=== PATIENT | male | born 1990 | race Caucasian/White ===

== ENCOUNTER 2022-02-13 21:34 | Emergency (ER) | payer OTHER, SELFPAY ==
[2022-02-13] VITALS (7 sets, daily range): BP systolic 136–155; BP diastolic 77–97; PULSE 62–72; RESP 14–16; TEMP 36.7; O2SAT 94–97; BMI 34.2
[2022-02-13] MEDS: MECLIZINE HCL 12.5 MG TABLET 25 MG PO (22:06)
--- NOTE | 2022-02-13 22:33 | ED_ITS ---
HPI - Dizziness General Chief Complaint: Dizziness Stated Complaint: Lightheaded, Dizzy, Nausea Time Seen by Provider: 02/13/22 22:24 Source: patient Mode of arrival: Ambulatory History of Present Illness HPI Narrative: Patient is a healthy 31-year-old male who presents with dizziness. He said for the last 2 weeks she has had dizziness off and on lasting for about 30-45 seconds at a time mostly at night. Is definitely moving positions at nighttime in bed triggers it. Also standing up sometimes triggers it. Today it was happening more frequently no multiple times an hour. He has not passed out he denies any chest pain or palpitations. He denies any fever or chills. He has no prior history of vertigo. Related Data Previous Rx's Medication Instructions Recorded meclizine 25 mg tablet 25 mg PO TID PRN dizziness #10 tabs 02/13/22 Allergies Allergy/AdvReac Type Severity Reaction Status Date / Time No Known Drug Allergies Allergy Verified 02/13/22 21:46 Review of Systems Review of Systems Narrative: GENERAL: Denies chills, fatigue, malaise, fever, sweats, travel HEENT: Denies sinus pain, ear pain, sore throat, difficulty swallowing, neck pain RESPIRATORY: Denies dyspnea, cough, wheezing, hemoptysis, sputum. CARDIOVASCULAR: Denies chest pain, palpitations, orthopnea, edema GASTROINTESTINAL: Denies nausea, vomiting, abdominal pain, diarrhea, constipation, melena. : Denies dysuria, frequency, incontinence, hematuria, urinary retention, flank pain. MUSCULOSKELETAL: Denies weakness, joint pain, or bony pain SKIN: No rash, no erythema, no pruritus NEUROLOGIC: See HPI PSYCHIATRIC: No concerning psychosocial issues. 12 point review of systems is negative except for those stated above and HPI Patient History Social History Smoking Status: Former smoker Smoking Status: Former smoker alcohol intake frequency: a few times a week Substance Use Type: does not use Exam Initial Vital Signs Initial Vital Signs: Vital Signs Pulse Rate 72 02/13/22 21:41 Respiratory Rate 14 02/13/22 21:41 Blood Pressure 142/97 H 02/13/22 21:41 Pulse Oximetry 96 02/13/22 21:41 GENERAL: Alert pleasant 31-year-old male and in no acute distress. HEENT: Head atraumatic,EOMI, no nystagmus pupils reactive, face symmetric, moist mucous membranes CARDIOVASCULAR: Regular rate and rhythm without murmurs, rubs or gallops. RESPIRATORY: Breath sounds equal bilaterally, no wheezes rales or rhonchi. ABDOMEN: Soft, nontender. Normoactive bowel sounds all 4 quadrants. No guarding or rebound. EXTREMITIES: Normal range of motion, no clubbing or edema. Neurovascularly intact NEUROLOGICAL: Alert and oriented x4.Normal gait and speech. Cranial nerves II through XII grossly intact. Good nlqstt-sd-hxyv, good mgnk-sb-nizb, strength equal bilaterally, no dysarthria or aphasia, sensation in tact to soft touch bilaterally, no visual changes, no facial droop SKIN: Warm, dry, no laceration, no petechiae, no rashes or lesions. Scores NIH Stroke Scale Level of Conciousness: Alert, keenly responsive Ask month/age: Answers both questions correctly. Open/close eyes, close hand: Performs both tasks correctly Best gaze horizontal: Normal Visual saldana: No visual loss Facial palsy: Normal symetrical movement Left arm drift: No drift for full 10 sec Right arm drift: No drift for full 10 sec Left leg drift: No drift for full 5 sec Right leg drift: No drift for full 5 sec Limb ataxia: Absent Sensory on face/arms/legs: Normal, no sensory loss Best language: No aphasia, normal Dysarthria: Normal Extinction or inattention: No abnormality Total NIH Stroke scale score: 0 Course Orders Ordered: ED Orders 02/13/22 22:38 CT head/brain wo con Stat EKG-12 Lead Stat 02/13/22 23:00 CBC Auto Diff [Complete Blood Count AUTO DIFF] Stat CMP [Comprehensive Metabolic Panel] Stat Discontinued Medications Meclizine HCl (Meclizine Hcl 12.5 Mg Tablet) 25 mg PO NOW ONE Stop: 02/13/22 21:57 Last Admin: 02/13/22 22:06 Dose: 25 mg Documented By: AT Vital Signs Vital signs: Vital Signs - 8 hr 02/13/22 21:46 02/13/22 21:41 02/13/22 21:41 Temperature 98.1 F Pulse Rate 70 72 Respiratory Rate 16 14 Blood Pressure 142/97 H 142/97 H Pulse Oximetry 95 96 Oxygen Delivery Method Room Air 02/13/22 22:00 02/13/22 22:00 02/13/22 22:30 Temperature Pulse Rate 70 Respiratory Rate Blood Pressure 155/89 H 136/85 Pulse Oximetry 94 Oxygen Delivery Method 02/13/22 22:30 02/13/22 23:00 02/13/22 23:03 Temperature Pulse Rate 67 62 Respiratory Rate Blood Pressure 151/91 H Pulse Oximetry 95 97 Oxygen Delivery Method 02/13/22 23:03 02/13/22 23:30 02/13/22 23:30 Temperature Pulse Rate 69 67 Respiratory Rate Blood Pressure 153/77 H Pulse Oximetry 97 96 Oxygen Delivery Method MDM - Dizziness Lab Data Result diagrams: 02/13/22 23:00 02/13/22 23:00 Labs: Lab Results 02/13/22 02/13/22 Range/Units 23:00 23:00 WBC 7.6 (4.5-11.0) X10^3/uL RBC 4.71 (4.5-5.9) X10^6/uL Hgb 13.6 (13.5-17.5) g/dL Hct 39.6 L (41-53) % MCV 84.0 (80-100) fL MCH 28.9 (26-34) PG MCHC 34.4 (30-36) % RDW 13.9 (11.6-14.8) % Plt Count 271 (150-400) X10^3/uL Neut % (Auto) 57.9 (50-75) % Lymph % (Auto) 32.8 (25-40) % [place] % (Auto) 7.2 (3-14) % Eos % (Auto) 1.9 L (2-4) % Baso % (Auto) 0.2 (0-2) % Neut # (Auto) 4400 (0139-5231) /uL Lymph # (Auto) 2500 (4672-3677) /uL [place] # (Auto) 500 (0-900) /uL Eos # (Auto) 100 (0-450) /uL Baso # (Auto) 0 (0-100) /uL Sodium 139 (137-145) mmol/L Potassium 4.0 (3.4-5.1) mmol/L Chloride 105 (98-107) mmol/L Carbon Dioxide 27 (22-32) mmol/L BUN 17 (9-20) mg/dL Creatinine 0.84 (0.66-1.25) mg/dL Estimated GFR > 60 (>60) mL/min BUN/Creatinine Ratio 20.2 (6-22) Glucose 97 (70-100) mg/dL Calcium 9.3 (8.4-10.2) mg/dL Total Bilirubin 0.3 (0.2-1.3) mg/dL AST 29 (17-59) IU/L ALT 46 (<50) IU/L Alkaline Phosphatase 85 (38-126) U/L Total Protein 7.7 (6.3-8.2) g/dL Albumin 4.4 (3.5-5.0) g/dL Globulin 3.3 (1.7-4.1) g/dL Albumin/Globulin Ratio 1.3 (1.0-2.8) Imaging Data CT scan - head: Radiologist's Impression: CT Scan Report Signed Patient: David Rodriguez MR#: [id number] : 1990 Acct:[id number] Age/Sex: 31 / M Date of Service: 02/13/22 Loc: ED Accession Number: [id number] ?? Procedure: CT head/brain wo con Ordering Provider: Marissa Nieves D.O. PROCEDURE:? CT HEAD/BRAIN WO CON ? INDICATIONS:? dizzy x 2 weeks ? TECHNIQUE:? Noncontrast 4.5 mm thick angled axial sections acquired from the foramen magnum to the vertex, with coronal and sagittal reformats.? For radiation dose reduction, the following was used:? automated exposure control, adjustment of mA and/or kV according to patient size.? ? COMPARISON:? None. ? FINDINGS:? Image quality:? Excellent.? ? CSF spaces:? Basal cisterns are patent.? No extra-axial fluid collections.? Ventricles are normal in size and shape.? ? Brain:? No intracranial hemorrhage, mass, or mass effect.? Sanchez-white matter interface appears preserved.? ? Skull and face:? Calvarium and visualized facial bones are intact, without suspicious lesions.? ? Sinuses:? Visualized sinuses and mastoids are clear.? ? IMPRESSION:? ? 1. No acute intracranial abnormality. ? ? Dictated by: Alexis Landaverde M.D. on 02/13/2022 at 23:19 ? ? ECG Data Interpretation: Normal sinus rhythm rate 70 p.r. interval 160 QRS [address] changes no T-wave inversions MDM Narrative Medical decision making narrative: The patient overall appears well. He has no focal deficits. He is able to sit without vomiting or weakness. Symptoms are differing worse with position which is most consistent with vertigo. Head CT is negative. His blood work is also negative. At this time I think more likely vertigo less likely posterior CVA. His no evidence of dehydration as her electrolyte abnormalities contributing to dizziness and lightheadedness. Discharge Plan Departure Patient Disposition: Home Clinical Impression: Vertigo Instructions: DI for Vertigo Activity Restrictions/Additional Instructions: *You have been diagnosed with vertigo *What to do: At this time this should go away spontaneously. You may need to see ENT if it does not improve *Continue to take medications as directed Meclizine 25 mg every 8 hours if needed for dizziness *Follow up with your primary care provider in 2-3 days or call [phone] *Return to ER if you should have decreased cheek dizzy this weakness numbness tingling palpitations or any new, worsening or concerning symptoms Prescriptions: New meclizine 25 mg tablet 25 mg PO TID PRN (Reason: dizziness) Qty: 10 0RF Visit Report Forms: Patient Portal/API
--- NOTE | 2022-02-13 22:38 | DI.CT.S_ITS ---
PROCEDURE: CT HEAD/BRAIN WO CON INDICATIONS: dizzy x 2 weeks TECHNIQUE: Noncontrast 4.5 mm thick angled axial sections acquired from the foramen magnum to the vertex, with coronal and sagittal reformats. For radiation dose reduction, the following was used: automated exposure control, adjustment of mA and/or kV according to patient size. COMPARISON: None. FINDINGS: Image quality: Excellent. CSF spaces: Basal cisterns are patent. No extra-axial fluid collections. Ventricles are normal in size and shape. Brain: No intracranial hemorrhage, mass, or mass effect. Sanchez-white matter interface appears preserved. Skull and face: Calvarium and visualized facial bones are intact, without suspicious lesions. Sinuses: Visualized sinuses and mastoids are clear. IMPRESSION: 1. No acute intracranial abnormality. Dictated by: Alexis Landaverde M.D. on 02/13/2022 at 23:19 Approved by: Alexis Landaverde M.D. on 02/13/2022 at 23:20
[2022-02-13 23:13] LABS: Add Manual Diff / Slide Review NO; Basophils Absolute Auto 0 /uL (0-100); Basophils Percent Auto 0.2 % (0-2); Eosinophils Absolute Auto 100 /uL (0-450); Eosinophils Percent Auto 1.9 % (2-4); Hematocrit 39.6 % (41-53); Hemoglobin 13.6 g/dL (13.5-17.5); Lymphocytes Absolute Auto 2500 /uL (1100-4500); Lymphocytes Percent Auto 32.8 % (25-40); Mean Corpuscular HGB Conc 34.4 % (30-36); Mean Corpuscular Hemoglobin 28.9 PG (26-34); Monocytes Absolute Auto 500 /uL (0-900); Monocytes Percent Auto 7.2 % (3-14); Neutrophils Absolute Auto 4400 /uL (1500-7000); Neutrophils Percent Auto 57.9 % (50-75); Platelet Count 271 X10^3/uL (150-400); Red Blood Cell Count 4.71 X10^6/uL (4.5-5.9); Red Cell Distribution Width 13.9 % (11.6-14.8); White Blood Cell Count 7.6 X10^3/uL (4.5-11.0)
[2022-02-13 23:22] LABS: Alanine Aminotransferase 46 IU/L (<50); Albumin 4.4 g/dL (3.5-5.0); Albumin Globulin Ratio 1.3 (1.0-2.8); Alkaline Phosphatase 85 U/L (38-126); Aspartate Aminotransferase 29 IU/L (17-59); BUN Creatinine Ratio 20.2 (6-22); Bilirubin Total 0.3 mg/dL (0.2-1.3); Blood Urea Nitrogen 17 mg/dL (9-20); Calcium 9.3 mg/dL (8.4-10.2); Carbon Dioxide 27 mmol/L (22-32); Chloride 105 mmol/L (98-107); Estimated Glomerular Filt Rate > 60 mL/min (>60); Globulin 3.3 g/dL (1.7-4.1); Glucose 97 mg/dL (70-100); HEMOLYSIS < 15 (0-50); Sodium 139 mmol/L (137-145); Total Protein 7.7 g/dL (6.3-8.2)
== END 2022-02-13 23:40 | disposition home or self-care (01) ==
PROVIDERS: Emergency Provider Emergency Medicine
DX: R42 Dizziness and giddiness (principal)
CPT/HCPCS: 36415; 70450; 80053; 85025; 93005; 99284

== ENCOUNTER 2023-04-18 17:39 | Emergency (ER) | payer OTHER, SELFPAY ==
[2023-04-18 17:46] VITALS: BP 173/102; PULSE 73; RESP 18; TEMP 36.6; O2SAT 100; BMI 31.7
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
--- NOTE | 2023-04-18 18:17 | PC.NURSE ---
Dr. Brink at bedside.
[2023-04-18 18:18] LABS: Add Manual Diff / Slide Review NO; Basophils Absolute Auto 0 /uL (0-100); Basophils Percent Auto 0.4 % (0-2); Eosinophils Absolute Auto 200 /uL (0-450); Eosinophils Percent Auto 2.1 % (2-4); Hematocrit 40.1 % (41-53); Hemoglobin 13.8 g/dL (13.5-17.5); Lymphocytes Absolute Auto 2700 /uL (1100-4500); Mean Corpuscular HGB Conc 34.5 % (30-36); Monocytes Absolute Auto 400 /uL (0-900); Monocytes Percent Auto 5.5 % (3-14); Neutrophils Absolute Auto 4100 /uL (1500-7000); Platelet Count 296 X10^3/uL (150-400); Red Blood Cell Count 4.78 X10^6/uL (4.5-5.9); Red Cell Distribution Width 14.4 % (11.6-14.8); White Blood Cell Count 7.4 X10^3/uL (4.5-11.0)
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
[2023-04-18 18:27] LABS: COVID19 -Nasal RAPID Negative (Negative)
[2023-04-18 18:29] LABS: UR Morphine/Opiate cutoff 300 Negative (Negative); Ur Creatinine Normal (Normal); Ur Specific Gravity Normal (Normal); Urine Amphetamines Negative (Negative); Urine Barbiturates Negative (Negative); Urine Benzodiazepines Negative (Negative); Urine Cocaine Negative (Negative); Urine MDMA Negative (Negative); Urine Methadone Negative (Negative); Urine Methamphetamines Negative (Negative); Urine Oxycodone Negative (Negative); Urine Phencyclidine Negative (Negative); Urine Tetrahydrocannabinol Negative (Negative); Urine Tricyclic Antidepressant Negative (Negative); Urine pH Normal (Normal)
[2023-04-18 18:32] LABS: Alanine Aminotransferase 50 IU/L (<50); Albumin 4.5 g/dL (3.5-5.0); Albumin Globulin Ratio 1.4 (1.0-2.8); Alkaline Phosphatase 80 U/L (38-126); Aspartate Aminotransferase 37 IU/L (17-59); BUN Creatinine Ratio 18.6 (6-22); Bilirubin Total 0.6 mg/dL (0.2-1.3); Blood Urea Nitrogen 13 mg/dL (9-20); Calcium 9.3 mg/dL (8.4-10.2); Carbon Dioxide 23 mmol/L (22-32); Chloride 108 mmol/L (98-107); Estimated Glomerular Filt Rate > 60 mL/min (>60); Ethanol (ETOH) < 10 mg/dL; Globulin 3.3 g/dL (1.7-4.1); Glucose 100 mg/dL (70-100); HEMOLYSIS 17 (0-50); Potassium 4.1 mmol/L (3.4-5.1); Sodium 140 mmol/L (137-145); Total Protein 7.8 g/dL (6.3-8.2)
[2023-04-18 19:06] LABS: Thyroid Stimulating Hormone 1.05 uIU/mL (0.47-4.68)
[2023-04-18 19:39] LABS: Acetaminophen < 10 ug/mL (10-30); Salicylate < 1.0 mg/dL (<20)
[2023-04-18 22:31] VITALS: BP 129/88; PULSE 71; RESP 16; O2SAT 98
--- NOTE | 2023-04-18 22:46 | PC.NURSE ---
this RN gave report to the [facility] crew and Ilan at [facility] at [address] [place] [address] ([phone]).
== END 2023-04-18 22:36 ==
PROVIDERS: Emergency Medicine; Emergency Provider Emergency Medicine
DX: R45.851 Suicidal ideations (principal); Z20.822 Contact with and (suspected) exposure to COVID-19
CPT/HCPCS: 36415; 80053; 80305; 80320; 80329; 81003; 84443; 85025; 87635; 99284; G0480